=== PATIENT | female | born 1990 | race Hispanic/Latino ===

== ENCOUNTER 2018-08-12 09:32 | Outpatient (CLI) | payer OTHER ==
--- NOTE | 2018-08-12 16:37 | ULT ---
RIGHT BREAST ULTRASOUND: Date: 08/12/18 HISTORY: Palpable abnormality 7 o'clock position of right breast. FINDINGS: There are two well circumscribed, hypoechoic, nonshadowing oval solid masses at the 7 o'clock positio n of the right breast, measuring 1.8 x 1.0 x 1.6 cm, and about 1.0 x 0.6 x 0.5 cm, respectively. 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 The option of follow-up versus biopsy was offered to the patient and she chose the biopsy option. Sonographic evaluation of the right axilla demonstrates no abnormalities. IMPRESSION: BIRADS Category 4 - Suspicious abnormality. Recommend ultrasound guided biopsies of the masses at the 7 o'clock position of right breast. Discussed in person with the patient at 1045 hours. CODE CR. POS: OFF
== END 2018-08-12 09:33 | disposition home or self-care (01) ==
LOC: BICMAMMO 09:32
PROVIDERS: ATTEND Student in an Organized Health Care Education/Training Program
DX: N63.10 Unspecified lump in the right breast, unspecified quadrant (principal)
CPT/HCPCS: 77066; G0279

== ENCOUNTER → 2018-09-01 | Day surgery (SDC) | payer OTHER ==
--- NOTE | 2018-09-01 16:22 | ULT ---
ULTRASOUND GUIDED RIGHT BREAST MASS BIOPSY: HISTORY: Breast mass. COMPARISON: Mammogram and ultrasound 08/12/2018. FINDINGS: The patient was brought to the ultrasound suite. All questions were answered. Informed consent was obtained. Timeout performed. The patient's right breast was prepped and draped in normal sterile fashion. There was revisualizati on of the collection in the right breast which extended to the skin surface. There was movement of t he internal echoes of this breast mass suggesting it was not solid but had extensive debris within it which may reflect necrosis, infection, or hematoma. Informed consent was obtained. Timeout performed. 4 mL of Lidocaine was instilled into the superfic ial and deep soft tissues. Using a 15 gauge needle, the right breast collection was attempted to be aspirated, although it was too thick to be aspirated through the needle. Subsequently, using a 14 ga uge needle, a total of 4 cores were obtained through the lesion. The patient tolerated the procedure well without complication. IMPRESSION: Technically successful ultrasound-guided right breast mass biopsy. POS: GIULIA
== END ==
LOC: BICULT 12:18
PROVIDERS: ATTEND Student in an Organized Health Care Education/Training Program
PROC: 0HBT3ZX Excision of Right Breast, Percutaneous Approach, Diagnostic (ICD-10-PCS; principal; 2018-09-01)
DX: N61.0 Mastitis without abscess (principal)
CPT/HCPCS: 19083; 88305; 88312; 88341; 88342

== ENCOUNTER 2024-05-05 10:57 | Outpatient (CLI) | payer OTHER | END 2024-05-05 10:58 | disposition home or self-care (01) | LOC: SCSRAD 10:57 | PROVIDERS: ATTEND Nurse Practitioner Family | DX: S69.92XA Unspecified injury of left wrist, hand and finger(s), initial encounter (principal) ==